=== PATIENT | male | born 1990 | race Caucasian/White ===

== ENCOUNTER → 2021-07-31 09:28 | Outpatient (CLI) | payer SELFPAY ==
[2021-07-31 11:45] LABS: Urine Chlamydia NOT DETECTED; Urine N gonorrhoeae NOT DETECTED
== END ==
PROVIDERS: Visit Provider Physician Assistant
DX: R30.9 Painful micturition, unspecified (principal)
CPT/HCPCS: 87491; 87591

== ENCOUNTER → 2022-09-26 15:09 | Outpatient (CLI) | payer OTHER, SELFPAY ==
--- NOTE | 2022-09-26 15:11 | DI.RAD.S_ITS ---
PROCEDURE: XR RIBS RT MIN 3V W CXR 1V INDICATIONS: Right-sided rib pain TECHNIQUE: 4 views of the right ribs were acquired, along with a single view chest. COMPARISON: None. FINDINGS: Surgical changes and devices: None. Bones and chest wall: Mildly displaced right anterolateral 9th rib fracture. No suspicious bony lesions. Overlying soft tissues appear unremarkable. Lungs and pleura: No pleural effusions or pneumothorax. Lungs appear clear. Mediastinum: Mediastinal contours appear normal. Heart size is normal. IMPRESSION: Right 9th rib fracture. Dictated by: Radha Ceballos M.D. on 09/26/2022 at 16:21 Approved by: Radha Ceballos M.D. on 09/26/2022 at 16:22
== END ==
PROVIDERS: Referring Provider Nurse Practitioner Family; Visit Provider Nurse Practitioner Family
DX: S22.31XA Fracture of one rib, right side, initial encounter for closed fracture (principal); S29.9XXA Unspecified injury of thorax, initial encounter; X58.XXXA Exposure to other specified factors, initial encounter
CPT/HCPCS: 71101